=== PATIENT | male | born 1955 | race Caucasian/White ===

== ENCOUNTER 2016-11-24 17:17 | Inpatient (IN) | payer OTHER, MEDICAID ==
--- NOTE | 2016-11-24 17:24 | CPEKG ---
Heart Rate: 119 RR Interval: 504 P-R Interval: 140 QRSD Interval: 76 QT Interval: 280 QTC Interval: 394 P Daven[place]: 50 QRS [place]en[place]: 86 T Wave Davenport: 269 EKG Severity - ABNORMAL ECG - EKG Impression: SINUS TACHYCARDIA EKG Impression: BORDERLINE RIGHT AXIS DEVIATION EKG Impression: NONSPECIFIC T ABNORMALITIES, DIFFUSE LEADS Electronically Signed By: Kp Ferris 24-Nov-2016 20:06:35
[2016-11-24] MEDS ORDERED: HYDROmorphONE/DILAUDID 1 MG/ML SYR IVP ONE (17:30)
[2016-11-24 17:51] LABS: % IMMATURE GRANULYOCYTES 0.9 % (0.0-1.1); ABSOLUTE IMMATURE GRANULOCYTES 0.21 10^3/uL (0.00-0.10); ADD DIFF? NO; ADD MORPH? NO; ADD SCAN? NO; ATYPICAL LYMPHOCYTE FLAG 0 (0-99); FRAGMENT RBC FLAG 0 (0-99); HEMATOCRIT 44.9 % (40.0-51.0); HEMOGLOBIN 15.4 g/dL (13.7-17.5); LEFT SHIFT FLG 90 (0-99); LIPEMIA HEMOLYSIS FLAG 90 (0-99); MEAN CELL HEMOGLOBIN 30.4 pg (27.9-34.1); MEAN CELL HEMOGLOBIN CONCENTR. 34.3 g/dL (32.4-36.7); MEAN CELL VOLUME 88.6 fL (81.5-99.8); MEAN PLATELET VOLUME 9.6 fL (8.7-11.7); PLATELET CLUMPS FLAG 10 (0-99); PLATELET COUNT 313 10^3/uL (150-400); RED BLOOD CELL COUNT 5.07 10^6/uL (4.40-6.38); RED CELL DISTRIBUTION WIDTH 14.6 % (11.5-15.2)
[2016-11-24 17:54] LABS: ALANINE AMINOTRANSFERASE 27 IU/L (21-72); ALBUMIN 3.8 g/dL (3.5-5.0); ALKALINE PHOSPHATASE 60 IU/L (38-126); ANION GAP 9 mEq/L (8-16); ASPARTATE AMINOTRANSFERASE 25 IU/L (17-59); BILIRUBIN,TOTAL 1.1 mg/dL (0.1-1.4); BILIRUBIN-CONJUGATED 0.7 mg/dL (0.0-0.5); BILIRUBIN-UNCONJUGATED 0.4 mg/dL (0.0-1.1); CALCIUM 8.8 mg/dL (8.5-10.4); CARBON DIOXIDE 25 mEq/l (22-31); CHLORIDE 101 mEq/L (97-110); CREATININE 0.8 mg/dL (0.7-1.3); GLOMERULAR FILTRATION RATE > 60; GLUCOSE 125 mg/dL (70-100); POTASSIUM 4.5 mEq/L (3.5-5.2); SODIUM 135 mEq/L (134-144); TOTAL PROTEIN 6.5 g/dL (6.3-8.2)
--- NOTE | 2016-11-24 18:03 | EDPHY ---
HPI/HX/ROS/PE/MDM Narrative: Chief complaint: Chest pain HPI: 61-year-old male has been having intermittent left-sided low chest pain for the last 2 days. Patient states is worse when he takes a deep breath. He has not been feeling short of breath. No fevers or chills. No nausea or vomiting. States that it is intermittent been going on throughout the course of today. Began 2 nights ago pad. Did not have any significant pain yesterday. He is a pack-a-day smoker. Denies alcohol or other drug use. No abdominal pain. No nausea vomiting or diarrhea. Has a family history of coronary disease in both his mother and father. ROS: 10 point Review of Systems is negative except as noted in the HPI. Past medical history: Hypertension Peripheral neuropathy Hyperlipidemia Physical exam: Gen: Awake, Alert, No Distress, patient is tachycardic with a sinus tachycardia HEENT: Nose: no rhinorrhea Eyes: PERRLA, EOMI Mouth: Dry mucous membranes Neck: Supple, no JVD Chest: nontender, breath sounds are diminished at the bilateral bases, no wheezes, no focal rhonchi Heart: S1, S2 normal, tachycardic Abd: Soft, non-tender, no guarding Back: no CVA tenderness, no midline tenderness Ext: no edema, non-tender Skin: no rash Neuro: CN II-XII intact, Sensation grossly intact, Strength 5/5 in bilateral upper and lower extremities ED Course: 61-year-old presenting with tachycardia, chest pain which is pleuritic in nature. ECG shows T-wave inversions across the precordium and in leads II,III aVF. Symptoms are concerning for PE but cannot exclude a possible infectious or cardiac cause at this time. There is also ST depression across the precordium less than 1 mm as well suggestive of ischemia. There are no reciprocal changes. 1755 white count is noted to be elevated. He meets SIRS criteria at this time. Lactic acid chest x-ray cultures have been ordered. 1820 Pt lactate above 2, meets criteria for severe sepsis. IV fluid bolus ordered, repeat lactate ordered, ceftriaxone 2 g ordered as likely source is respiratory if he does have an infection. CT chest: Large left lower lobe infiltrate consistent with pneumonia, no PE. Study interpreted by Dr. Andujar. 1920 patient's heart rate has come down to 90 5, oxygen saturations 91%, blood pressure 1/10 to over 80. He has received 2 L bolus. Repeat lactic acid has been sent. He has received antibiotics. I have discussed with Dr. Quan, hospitalist. She would like the patient admitted to [facility] for further care. 1927 repeat lactate down to 2.1. - Data Points Laboratory Results: Laboratory Results 11/24/16 17:32 11/24/16 17:25 11/24/16 11/24/16 11/24/16 19:17 18:05 17:32 WBC 23.81 H 10^3/uL (3.80-9.50) RBC 5.07 10^6/uL (4.40-6.38) Hgb 15.4 g/dL (13.7-17.5) Hct 44.9 % (40.0-51.0) MCV 88.6 fL (81.5-99.8) MCH 30.4 pg (27.9-34.1) MCHC 34.3 g/dL (32.4-36.7) RDW 14.6 % (11.5-15.2) Plt Count 313 10^3/uL (150-400) MPV 9.6 fL (8.7-11.7) Neut % (Auto) 92.6 H % (39.3-74.2) Lymph % (Auto) 2.5 L % (15.0-45.0) Mcdonald % (Auto) 3.8 L % (4.5-13.0) Eos % (Auto) 0.0 L % (0.6-7.6) Baso % (Auto) 0.2 L % (0.3-1.7) Nucleat RBC Rel Count 0.0 % (0.0-0.2) Absolute Neuts (auto) 22.06 H 10^3/uL (1.70-6.50) Absolute Lymphs (auto) 0.59 L 10^3/uL (1.00-3.00) Absolute Monos (auto) 0.90 H 10^3/uL (0.30-0.80) Absolute Eos (auto) 0.00 L 10^3/uL (0.03-0.40) Absolute Basos (auto) 0.05 10^3/uL (0.02-0.10) Absolute Nucleated RBC 0.00 10^3/uL (0-0.01) Immature Gran % 0.9 % (0.0-1.1) Immature Gran # 0.21 H 10^3/uL (0.00-0.10) PT INR APTT VBG Lactic Acid 2.1 mmol/L 2.5 H mmol/L (0.7-2.1) (0.7-2.1) Sodium Potassium Chloride Carbon Dioxide Anion Gap BUN Creatinine Estimated GFR Glucose Calcium Total Bilirubin Conjugated Bilirubin Unconjugated Bilirubin AST ALT Alkaline Phosphatase Troponin I Total Protein Albumin Lipase Urine Color Pending Urine Appearance Pending Urine pH Pending Ur Specific Vansant Pending Urine Protein Pending Urine Ketones Pending Urine Blood Pending Urine Nitrate Pending Urine Bilirubin Pending Urine Urobilinogen Pending Ur Leukocyte Esterase Pending Urine Glucose Pending Influenza A & B (PCR) Pending 11/24/16 17:25 WBC RBC Hgb Hct MCV MCH MCHC RDW Plt Count MPV Neut % (Auto) Lymph % (Auto) Mcdonald % (Auto) Eos % (Auto) Baso % (Auto) Nucleat RBC Rel Count Absolute Neuts (auto) Absolute Lymphs (auto) Absolute Monos (auto) Absolute Eos (auto) Absolute Basos (auto) Absolute Nucleated RBC Immature Gran % Immature Gran # PT 14.5 SEC (12.0-15.0) INR 1.14 (0.83-1.16) APTT 32.6 SEC (23.0-38.0) VBG Lactic Acid Sodium 135 mEq/L (134-144) Potassium 4.5 mEq/L (3.5-5.2) Chloride 101 mEq/L (97-110) Carbon Dioxide 25 mEq/l (22-31) Anion Gap 9 mEq/L (8-16) BUN 11 mg/dL (7-23) Creatinine 0.8 mg/dL (0.7-1.3) Estimated GFR > 60 Glucose 125 H mg/dL (70-100) Calcium 8.8 mg/dL (8.5-10.4) Total Bilirubin 1.1 mg/dL (0.1-1.4) Conjugated Bilirubin 0.7 H mg/dL (0.0-0.5) Unconjugated Bilirubin 0.4 mg/dL (0.0-1.1) AST 25 IU/L (17-59) ALT 27 IU/L (21-72) Alkaline Phosphatase 60 IU/L (38-126) Troponin I < 0.012 ng/mL (0-0.034) Total Protein 6.5 g/dL (6.3-8.2) Albumin 3.8 g/dL (3.5-5.0) Lipase < 10.0 L IU/L (23-300) Urine Color Urine Appearance Urine pH Ur Specific Vansant Urine Protein Urine Ketones Urine Blood Urine Nitrate Urine Bilirubin Urine Urobilinogen Ur Leukocyte Esterase Urine Glucose Influenza A & B (PCR) Medications Given: Discontinued Medications Hydromorphone HCl (Dilaudid) 0.5 mg IVP EDNOW ONE Stop: 11/24/16 17:31 Last Admin: 11/24/16 17:38 Dose: 0.5 mg Ceftriaxone Sodium 2 gm/ (Dextrose) 50 mls @ 100 mls/hr IV EDNOW ONE PRN Reason: Protocol Stop: 11/24/16 18:47 Last Admin: 11/24/16 18:46 Dose: 50 mls Sodium Chloride (Ns *For Sepsis Order Set Only*) 2,041 ml IV EDNOW ONE Stop: 11/24/16 18:19 Last Admin: 11/24/16 18:23 Dose: 2,041 ml General Time Seen by Provider: 11/24/16 17:17 Initial Vital Signs: Initial Vital Signs Temperature (C) 37.3 C 11/24/16 17:26 Heart Rate 120 H 11/24/16 17:26 Respiratory Rate 20 11/24/16 17:26 Blood Pressure 105/66 11/24/16 17:26 O2 Sat (%) 90 L 11/24/16 17:26 O2 Delivery Mode Nasal Cannula O2 (L/minute) 2 Allergies/Adverse Reactions: No Known Allergies Allergy (Verified 03/17/14 20:46) Home Medications: Medication Instructions Recorded Atorvastatin Calcium [Lipitor 40 40 mg PO HS 03/18/14 mg (RX)] Cyclobenzaprine [Flexeril 10 MG 10 mg PO BID 03/18/14 (RX)] Lisinopril [Zestril 10 mg (*)] 10 mg PO HS 03/18/14 Sertraline HCl [Zoloft] 75 mg PO DAILY 03/18/14 oxyCODONE/APAP 5/325 [Percocet 1 tab PO Q4 PRN 03/18/14325 (RX)] GABAPENTIN 11/24/16 Oxycontin 11/24/16 Departure - Departure Disposition: [facility] Inpatient Acute Clinical Impression: Pneumonia Condition: Fair Referrals: Yonny Robins MD [Primary Care Provider] - As per Instructions
[2016-11-24 18:06] LABS: TROPONIN I < 0.012 ng/mL (0-0.034)
[2016-11-24 18:10] LABS: APTT 32.6 SEC (23.0-38.0); INR 1.14 (0.83-1.16); PROTIME(PATIENT) 14.5 SEC (12.0-15.0)
[2016-11-24] MEDS ORDERED: NS 1,000 ML BAG *FOR SEPSIS ORDER SET ONLY IV ONE (18:18)
[2016-11-24] MEDS ORDERED: cefTRIAXone 2 GM in D5W 50 ML IV ONE (18:18)
[2016-11-24] MEDS ORDERED: CEFTRIAXONE 1 GM/DEXTROSE/50 ML BAG IV ONE (18:20)
[2016-11-24] MEDS ORDERED: IOPAMIDOL (ISOVUE 370) 100 ML BTL IV ONE (18:43)
--- NOTE | 2016-11-24 18:57 | DX ---
Chest, Two Views at 1755 hours History: Meets sepsis criteria, suspected infection . Chest pain. Comparison: December 2007 Findings: Cardiac silhouette is within normal range. Alveolar opacity in the left lower lobe posterio r basal segment. No pleural effusion or pneumothorax. Impression: Left lower lobe pneumonia.
[2016-11-24 19:09] LABS: LACGHOST ORDER
[2016-11-24 19:29] LABS: COLOR PALE YELLOW; LEUKOCYTE ESTERASE,URINE NEGATIVE (NEGATIVE); NITRITE,URINE NEGATIVE (NEGATIVE)
[2016-11-24] MEDS ORDERED: fentaNYL 100 MCG/2 ML INJ ONE (19:32)
[2016-11-24] MEDS ORDERED: fentaNYL 100 MCG/2 ML INJ IVP ONE (19:37)
--- NOTE | 2016-11-24 19:38 | CT ---
CT Chest Pulmonary Angiogram With Contrast Enhancement and Multiplanar Reconstructions 2016 at 1900 Hours History: Dyspnea, leukocytosis. Comparison: Chest x-ray from today. Technique: 1.25-mm axial multidetector helical CT angiogram imaging was performed through the chest w hile 90 mL Isovue-370 were injected intravenously without complication. The images were then transfe rred to an independent workstation where multiplanar and three-dimensional reconstructions were perfo rmed by the interpreting physician and reviewed at multiple windows. Dose reduction techniques were u tilized. CT Pulmonary Angiogram Findings: No CT evidence of definite pulmonary thromboemboli. No aortic aneur ysm or dissection. Heart is normal in size. CT Chest Findings: Alveolar opacity opacifying the majority of the left lower lobe, likely representi ng pneumonia. Pleuroparenchymal scarring in the lingula. A few probably inflammatory mediastinal lymp h nodes with the largest right paratracheal lymph node measuring 20 x 13 mm. Small hiatal hernia with thickening of the distal esophagogastric junction. Consider follow-up endoscopy. Coronary artery bela cifications noted. Minimal dependent atelectasis right lower lobe. No pleural effusion. No destructiv e osseous lesions. Impressions: 1. No definite pulmonary thromboemboli. 2. Left lower lobe pneumonia. Recommend follow-up until clear. 3. A few probably benign inflammatory mediastinal lymph nodes. 4. No pleural effusion or pneumothorax. 5. Small hiatal hernia with distal esophagogastric circumferential wall thickening which may represen t esophagitis. Recommend upper endoscopy GI consult follow-up. Findings and recommendations discussed with emergency department physician, Dr. Kp Elizondo at 1915 hours today. Final report concurs with initial preliminary interpretation. A Critical Abnormality Doc Only message has been documented for Kp Ferris MD in the [employer] Critical Result system on 11/24/2016 19:18, Message ID [id number].
[2016-11-24] MEDS ORDERED: HYDROmorphONE/DILAUDID 1 MG/ML SYR IVP PRN (19:50)
[2016-11-24] MEDS ORDERED: CYCLOBENZAPRINE 10 MG TAB PO PRN (19:51)
[2016-11-24] MEDS ORDERED: oxyCODONE IR 15 MG TAB PO PRN (19:51)
[2016-11-24] MEDS ORDERED: KETOROLAC 30 MG/1 ML SDV IVP PRN (19:51)
[2016-11-24] MEDS ORDERED: ACETAMINOPHEN 325 MG TAB PO PRN (19:52)
[2016-11-24] MEDS ORDERED: ONDANSETRON 4 MG/2 ML VIAL IVP PRN (19:52)
[2016-11-24] MEDS ORDERED: IPRATROPIUM/ALBUTEROL 3 ML DEYVIAL IH PRN (20:08)
[2016-11-24] MEDS: GABAPENTIN 300 MG CAP PO SCH (20:24)
[2016-11-24] MEDS: ATORVASTATIN CALCIUM 20 MG TAB PO SCH (20:24)
[2016-11-24] MEDS: PANTOPRAZOLE SODIUM 40 MG TAB PO SCH (20:25)
[2016-11-24] MEDS: NS 1,000 ML IV SCH (20:26)
--- NOTE | 2016-11-24 20:43 | GHP ---
[f rep st] HISTORY AND PHYSICAL DATE OF ADMISSION: 11/24/2016 CHIEF COMPLAINT: Pleuritic chest pain. HISTORY: The patient is a 61-year-old male who comes in complaining of severe left-sided pleuritic c hest pain. It started yesterday, but he woke up this morning and it was very severe, sharp like a kn isidro, radiating to his back. He denies any shortness of breath. He has been having tactile fevers as well as a new cough, nonproductive, for the last 3 days. He occasionally will have GERD symptoms bu t has not had any unintentional weight loss and has had normal p.o. intake. He also feels like his k idneys are hurting. PAST MEDICAL HISTORY: 1. Hypertension. 2. Hyperlipidemia. 3. Peripheral neuropathy. 4. Chronic back pain with continuous narcotic dependency. MEDICATIONS: Please see computer record for full detailed list. ALLERGIES: No known drug allergies. SOCIAL HISTORY: Smokes 1 pack per day. Occasional alcohol. Lives alone. REVIEW OF SYSTEMS: Complete review of systems obtained. Review of systems is negative on constituti onal, HEENT, GI, pulmonary, cardiovascular, , hematology, skin, musculoskeletal, endocrine, and psy ch except for positives and pertinent negatives which were listed as under HPI. FAMILY HISTORY: Reviewed and noncontributory to presenting complaint. PHYSICAL EXAMINATION: GENERAL: Well-nourished male, in no distress. VITAL SIGNS: Temperature is 3 7.3, pulse 120, blood pressure 129/77, sating 90% on 2 L. EYES: Normal conjunctiva. Pupils equal, round, and react to light. ENT: Normal ears, nose. Hearing intact. Normal lips and teeth. Oropha rynx moist. NECK: Trachea midline. No thyromegaly. CHEST: Normal effort. LUNGS: Clear to auscu ltation bilaterally. CARDIOVASCULAR: Regular rhythm. No murmur. No lower extremity edema. ABDOME N: Soft, nontender. No hepatosplenomegaly. SKIN: Warm, dry, intact without rash. MUSCULOSKELETAL : No cyanosis or clubbing. Strength 5/5 upper and lower extremities. NEUROLOGIC: Cranial nerves i ntact. Normal sensation light touch. PSYCHIATRIC: Alert and oriented x3. Normal affect. Normal j udgment and insight. Normal memory. LABS: White count 23.8, hematocrit 44.9, platelets 313. Sodium 135, potassium 4.5, chloride 101, bi carb 25, BUN 11, creatinine 0.8, glucose 125. LFTs are normal. Lipase negative. Troponin negative CT angiogram of the chest is negative for pulmonary embolus. There is left lower lobe pneumonia. Th ere is a question of esophagitis EKG viewed by me on my personal interpretation is normal sinus rhyth m, anterior T-wave inversions. Chest x-ray reviewed by me does show a very slight left lower lobe in filtrate. ASSESSMENT/PLAN: 1. Pneumonia with severe sepsis. He does present with elevated lactate as well as leukocytosis and tachycardia. He received a large IV fluid bolus in the emergency room. We will now follow serial la ctates. We will place him on IV ceftriaxone and IV azithromycin for community-acquired pneumonia. 2. Tobacco dependence. Will place him on a nicotine patch and use DuoNeb as needed. 3. Esophagitis by CAT scan. He has minimal symptoms. We will start empirically on a proton pump in hibitor. He should undergo EGD when his clinical status is improved. 4. Chronic back pain with continuous narcotic dependency. Will continue his usual OxyContin doses. 5. Neuropathy. Continue gabapentin. CODE STATUS: Full. ADMISSION STATUS: Will admit to inpatient as he is quite sick. Anticipate 2 midnights required for discharge stability. DVT PROPHYLAXIS: He is high risk. I will place him on subcu Lovenox. /[id number]/MODL
[2016-11-24] MEDS: AZITHROMYCIN IV 500 MG in D5W 250 ML IV SCH (20:47)
[2016-11-24] MEDS ORDERED: NON-FORMULARY NEW DRUG (Oxycodone Hcl [Oxycontin] 60 MG) PO SCH (21:00)
[2016-11-25 04:57] LABS: % IMMATURE GRANULYOCYTES 0.7 % (0.0-1.1); ABSOLUTE IMMATURE GRANULOCYTES 0.15 10^3/uL (0.00-0.10); ADD DIFF? NO; ADD MORPH? NO; ADD SCAN? YES; ATYPICAL LYMPHOCYTE FLAG 0 (0-99); FRAGMENT RBC FLAG 0 (0-99); HEMATOCRIT 40.8 % (40.0-51.0); LIPEMIA HEMOLYSIS FLAG 90 (0-99); MEAN CELL HEMOGLOBIN 30.7 pg (27.9-34.1); MEAN CELL HEMOGLOBIN CONCENTR. 34.3 g/dL (32.4-36.7); MEAN CELL VOLUME 89.5 fL (81.5-99.8); MEAN PLATELET VOLUME 9.6 fL (8.7-11.7); PLATELET CLUMPS FLAG 0 (0-99); PLATELET COUNT 244 10^3/uL (150-400); RED BLOOD CELL COUNT 4.56 10^6/uL (4.40-6.38); RED CELL DISTRIBUTION WIDTH 14.8 % (11.5-15.2)
[2016-11-25 05:07] LABS: LEFT SHIFT FLG 210 (0-99)
[2016-11-25 05:13] LABS: ANION GAP 8 mEq/L (8-16); CALCIUM 7.9 mg/dL (8.5-10.4); CARBON DIOXIDE 24 mEq/l (22-31); CHLORIDE 105 mEq/L (97-110); CREATININE 0.6 mg/dL (0.7-1.3); GLOMERULAR FILTRATION RATE > 60; GLUCOSE 101 mg/dL (70-100); POTASSIUM 3.8 mEq/L (3.5-5.2); SODIUM 137 mEq/L (134-144)
[2016-11-25] MEDS: GABAPENTIN 300 MG CAP PO SCH ×3 (05:19→20:46)
[2016-11-25 05:23] LABS: TROPONIN I < 0.012 ng/mL (0-0.034)
[2016-11-25 05:37] LABS: SCAN POSITIVE
[2016-11-25 05:42] LABS: PLATELET ESTIMATE ADEQUATE (ADEQ)
--- NOTE | 2016-11-25 08:22 | HOSPPROG ---
Hospitalist Progress Note Assessment/Plan: Severe sepsis secondary to LLL PNA - Sepsis physiology resolving, lactate normalized, wbc's trending down. BCx's and Sputum Cx pending. -Cont Ceftriaxone/Azithromycin, O2, nebs Esophageal thickening - ?esophagitis vs malignancy. Appreciate GI consult. Will consider inpt vs outpt EGD once respiratory status stabilized. Hypertension - Stable, cont current meds. Hyperlipidemia - Cont statin Neuropathy - Cont gabapentin Chronic back pain - Cont home pain medication regimen DVT PPLX - Lovenox Full code Dispo - cont inpt Subjective: Pt still coughing. Afebrile. Chest pain improved. Not SOB at rest , but reports dyspnea with exertion. Tolerating po. c/o multiple orthopedic issues causing his chronic pain. Objective: Vital Signs Temp Pulse Resp BP Pulse Ox 36.8 C 87 16 105/63 93 11/25/16 07:39 11/25/16 07:39 11/25/16 07:39 11/25/16 07:39 11/25/16 07:39 Laboratory Results 11/25/16 04:23 11/25/16 04:23 11/24/16 11/25/16 11/26/16 05:59 05:59 05:59 Intake Total 3123 Output Total 550 Balance 2573 PT 14.5 SEC (12.0-15.0) 11/24/16 17:25 INR 1.14 (0.83-1.16) 11/24/16 17:25 - Physical Exam Constitutional: no apparent distress Eyes: PERRL Ears, Nose, Mouth, Throat: moist mucous membranes Cardiovascular: regular rate and rhythym Respiratory: no respiratory distress, other (+left basilar crackles) Gastrointestinal: normoactive bowel sounds, soft, non-tender abdomen Skin: warm Neurologic: AAOx3 Psychiatric: interacting appropriately ICD10 Worksheet Patient Problems: Problems Problem Status Diagnosed Pneumonia Acute Clostridium difficile infection Active
[2016-11-25] MEDS: LISINOPRIL 5 MG TAB PO SCH (09:53)
[2016-11-25] MEDS: PANTOPRAZOLE SODIUM 40 MG TAB PO SCH ×2 (09:53→20:47)
[2016-11-25] MEDS: SERTRALINE HCL 50 MG TAB PO SCH (09:53)
[2016-11-25] MEDS: NICOTINE 21 MG/24 HR PATCH TD SCH ×2 (09:55→10:52)
[2016-11-25] MEDS: ENOXAPARIN 40 MG/0.4 ML SYR SC SCH (09:56)
[2016-11-25] MEDS: AZITHROMYCIN IV 500 MG in D5W 250 ML IV SCH (10:25)
[2016-11-25] MEDS ORDERED: oxyCODONE IR 15 MG TAB ONE (11:52)
[2016-11-25] MEDS: NS 1,000 ML IV SCH (11:59)
[2016-11-25] MEDS: oxyCODONE IR 15 MG TAB PO PRN ×2 (12:00→18:13)
--- NOTE | 2016-11-25 13:59 | GCON ---
[f rep st] CONSULTATION DATE OF CONSULTATION: 11/25/2016 CHIEF COMPLAINT: Abnormal CT scan and chest pain. HISTORY OF PRESENT ILLNESS: I am asked to see this patient in consultation by Dr. Gonsalez for chief complaint of abnormal CT scan with chest pain. Patient is a 61-year-old who was admitted yesterday f or evaluation of severe left-sided pleuritic chest pain. He had a CT scan that showed a left lower l obe pneumonia, however, he also had thickening and abnormality of his distal esophagus. The patient states that he has occasional GERD that is infrequent. No nausea and vomiting recently, but states t hat he may vomit occasionally, but less than once a month. He denies any dysphagia, including no dys phagia to solids or liquids. He has not had any weight loss. He states he does have irregular stool s because of his medications; sometimes he will get diarrhea from the Zoloft, but he also takes chron ic pain medications that tend to make him constipated. He has had no blood in his stools. No melena . He has had a colonoscopy by my partner in 2006 and that was negative. There is no known family hi story for esophageal cancer. ALLERGIES: No drug allergies. HOME MEDICATIONS: Include oxycodone, Neurontin, lisinopril, Zoloft, Flexeril, Lipitor, roxicodone. PAST MEDICAL HISTORY: Notable for hypertension, hyperlipidemia, peripheral neuropathy, chronic back pain, opioid dependence. SOCIAL HISTORY: He smokes a pack a day. Drinks occasional alcohol. FAMILY HISTORY: Negative for esophageal cancer or colon cancer. REVIEW OF SYSTEMS: Review of 10 systems, including general, psych, HEENT, cardiovascular, pulmonary, renal, hematologic, musculoskeletal, derm, neurologic discussed and otherwise negative except noted above. PHYSICAL EXAMINATION: VITAL SIGNS: Currently afebrile at 36.6, BP 108/60, pulse 86. HEENT: PERRLA . EOMI: No scleral icterus. Oropharynx is normal. NECK: Supple without lymphadenopathy. No thyr omegaly. CARDIAC: Regular rate and rhythm, S1, S2 normal. No murmur detected. PMI in normal locat ion. CHEST: Clear to auscultation, although he does have some decreased breath sounds in the left l ower lobe. ABDOMEN: Soft, nontender. No hepatosplenomegaly. EXTREMITIES: Normal. NEUROLOGICAL: Nonfocal. LABORATORY DATA: Hematocrit of 40.8, white count is elevated at 21. Coags are normal. Liver tests are normal with alkaline phosphatase of 60, AST 25, ALT 27, total bilirubin is 1.1, lipase less than 10. CT scan of the chest shows no thromboemboli to the pulmonary artery, left lower lobe pneumonia, a few benign-appearing mediastinal lymph nodes. No pleural effusions. Small hiatal hernia in the di stal esophagus with circumferential wall thickening that may represent esophagitis. ASSESSMENT: 1. Patient with chest pain. 2. Left lower lobe pneumonia. 3. Abnormal CT scan of the esophagus concerning for possible esophagitis, but also consider malignan t process. The patient is relatively asymptomatic, however, I would recommend upper endoscopy. At t his point, we will need to postpone any EGD due to his ongoing pulmonary status, but once his pneumon ia is improved, we could proceed with an EGD. Patient has mentioned he would like to do this as an o utpatient. I would suggest consideration of an upper endoscopy with monitored anesthesia care charlotte rainey of his chronic narcotic pain medication. We will follow. Thank you for this consult. /[id number]/MODL
[2016-11-25] MEDS: ATORVASTATIN CALCIUM 20 MG TAB PO SCH (20:46)
[2016-11-26] MEDS: GABAPENTIN 300 MG CAP PO SCH ×3 (04:08→20:37)
[2016-11-26] MEDS: oxyCODONE IR 15 MG TAB PO PRN ×3 (04:08→16:47)
[2016-11-26 05:48] LABS: % IMMATURE GRANULYOCYTES 0.5 % (0.0-1.1); ABSOLUTE IMMATURE GRANULOCYTES 0.08 10^3/uL (0.00-0.10); ADD DIFF? NO; ADD MORPH? NO; ADD SCAN? NO; ATYPICAL LYMPHOCYTE FLAG 0 (0-99); FRAGMENT RBC FLAG 0 (0-99); HEMATOCRIT 39.7 % (40.0-51.0); HEMOGLOBIN 13.5 g/dL (13.7-17.5); LEFT SHIFT FLG 20 (0-99); LIPEMIA HEMOLYSIS FLAG 90 (0-99); MEAN CELL HEMOGLOBIN 30.7 pg (27.9-34.1); MEAN CELL VOLUME 90.2 fL (81.5-99.8); MEAN PLATELET VOLUME 9.8 fL (8.7-11.7); PLATELET CLUMPS FLAG 0 (0-99); PLATELET COUNT 264 10^3/uL (150-400); RED CELL DISTRIBUTION WIDTH 14.4 % (11.5-15.2)
[2016-11-26] MEDS: AZITHROMYCIN IV 500 MG in D5W 250 ML IV SCH (09:31)
[2016-11-26] MEDS: SERTRALINE HCL 50 MG TAB PO SCH (10:40)
[2016-11-26] MEDS: LISINOPRIL 5 MG TAB PO SCH (10:40)
[2016-11-26] MEDS: ENOXAPARIN 40 MG/0.4 ML SYR SC SCH (10:42)
[2016-11-26] MEDS: NICOTINE 21 MG/24 HR PATCH TD SCH (10:42)
[2016-11-26] MEDS: PANTOPRAZOLE SODIUM 40 MG TAB PO SCH ×2 (10:42→20:38)
--- NOTE | 2016-11-26 11:09 | SOAPPROG ---
SOAP Progress Note Assessment/Plan: Assessment: Cough Abnormal CT scan of esophagus likely from GERD will need EGD but patient would like to do as outpatient after his pneumonia has resolved Plan: Will arrange for outpatient EGD PPI daily Will sign off 11/26/16 11:06 Subjective: CC cough Respiratory symptoms are better, no GERD Objective: Vital Signs Temp Pulse Resp BP Pulse Ox 36.6 C 71 16 120/84 H 94 11/26/16 07:22 11/26/16 07:22 11/26/16 07:22 11/26/16 10:40 11/26/16 07:22 Microbiology 11/25/16 16:19 - Final Sputum, Expectorated Laboratory Results 11/26/16 04:21 11/25/16 04:23 11/25/16 11/26/16 11/27/16 05:59 05:59 05:59 Intake Total 3123 Output Total 550 Balance 2573 PT 14.5 SEC (12.0-15.0) 11/24/16 17:25 INR 1.14 (0.83-1.16) 11/24/16 17:25 Physical Exam - Physical Exam General Appearance: alert, no apparent distress Respiratory: decreased breath sounds, No wheezing Cardiac/Chest: regular rate, rhythm, No diastolic murmur Abdomen: non-tender, soft ICD10 Worksheet Patient Problems: Problems Problem Status Diagnosed Pneumonia Acute Clostridium difficile infection Active
--- NOTE | 2016-11-26 16:07 | HOSPPROG ---
Hospitalist Progress Note Assessment/Plan: Severe sepsis secondary to LLL PNA - Sepsis physiology resolving, lactate normalized, wbc's trending down. BCx's and Sputum Cx pending. -Cont Ceftriaxone/Azithromycin, O2, nebs Esophageal thickening - ?esophagitis vs malignancy. Appreciate GI consult. Will consider inpt vs outpt EGD once respiratory status stabilized. Increased anesthesia risk with high dose chronic opiates. Hypertension - Stable, cont current meds. Hyperlipidemia - Cont statin Neuropathy - Cont gabapentin Chronic back pain - Cont home pain medication regimen, high risk opiate regimen. DVT PPLX - Lovenox Full code Dispo - cont inpt Subjective: Pt feels better. Still productive cough, but no fevers. No CP or SOB. Still requiring O2. Pain controlled. Objective: Vital Signs Temp Pulse Resp BP Pulse Ox 36.6 C 77 16 154/91 H 90 L 11/26/16 15:23 11/26/16 15:23 11/26/16 15:23 11/26/16 15:23 11/26/16 15:23 Microbiology 11/25/16 16:19 - Final Sputum, Expectorated Laboratory Results 11/26/16 04:21 11/25/16 04:23 11/25/16 11/26/16 11/27/16 05:59 05:59 05:59 Intake Total 3123 Output Total 550 Balance 2573 PT 14.5 SEC (12.0-15.0) 11/24/16 17:25 INR 1.14 (0.83-1.16) 11/24/16 17:25 - Physical Exam Constitutional: no apparent distress Eyes: PERRL Ears, Nose, Mouth, Throat: moist mucous membranes Cardiovascular: regular rate and rhythym Respiratory: no respiratory distress, other (Left lower lobe crackles) Gastrointestinal: normoactive bowel sounds, soft, non-tender abdomen Skin: warm Neurologic: AAOx3 Psychiatric: interacting appropriately ICD10 Worksheet Patient Problems: Problems Problem Status Diagnosed Pneumonia Acute Clostridium difficile infection Active
[2016-11-26] MEDS: ATORVASTATIN CALCIUM 20 MG TAB PO SCH (20:37)
[2016-11-27] MEDS: oxyCODONE IR 15 MG TAB PO PRN ×2 (03:19→09:37)
[2016-11-27 04:53] LABS: % IMMATURE GRANULYOCYTES 0.5 % (0.0-1.1); ABSOLUTE IMMATURE GRANULOCYTES 0.04 10^3/uL (0.00-0.10); ADD DIFF? NO; ADD MORPH? NO; ADD SCAN? NO; ATYPICAL LYMPHOCYTE FLAG 30 (0-99); FRAGMENT RBC FLAG 0 (0-99); HEMATOCRIT 40.2 % (40.0-51.0); HEMOGLOBIN 13.4 g/dL (13.7-17.5); LEFT SHIFT FLG 10 (0-99); LIPEMIA HEMOLYSIS FLAG 80 (0-99); MEAN CELL HEMOGLOBIN 30.2 pg (27.9-34.1); MEAN CELL HEMOGLOBIN CONCENTR. 33.3 g/dL (32.4-36.7); MEAN CELL VOLUME 90.5 fL (81.5-99.8); MEAN PLATELET VOLUME 9.4 fL (8.7-11.7); PLATELET CLUMPS FLAG 0 (0-99); PLATELET COUNT 283 10^3/uL (150-400); RED BLOOD CELL COUNT 4.44 10^6/uL (4.40-6.38)
[2016-11-27] MEDS: GABAPENTIN 300 MG CAP PO SCH (05:16)
[2016-11-27 08:26] VITALS: BP 121/69; PULSE 80; RESP 14; TEMP 97.9; O2SAT 92
[2016-11-27] MEDS: SERTRALINE HCL 50 MG TAB PO SCH (08:28)
[2016-11-27] MEDS: LISINOPRIL 5 MG TAB PO SCH (08:29)
[2016-11-27] MEDS: ENOXAPARIN 40 MG/0.4 ML SYR SC SCH (08:29)
[2016-11-27] MEDS: PANTOPRAZOLE SODIUM 40 MG TAB PO SCH (08:29)
[2016-11-27] MEDS: NICOTINE 21 MG/24 HR PATCH TD SCH (08:29)
[2016-11-27] MEDS: AZITHROMYCIN IV 500 MG in D5W 250 ML IV SCH (09:36)
--- NOTE | 2016-11-27 09:36 | PDDCSUM ---
Discharge Summary Discharge Summary: HPI and Hospital Course: 61 YO MALE ADMITTED FOR SEPSIS AND PNEUMONIA. NOW BETTER. ALSO DIAGNOSED WITH LIKELY ESOPHAGITIS. SEE BELOW DDX: Severe sepsis secondary to LLL PNA -BCx's and Sputum Cx negative thus far -treated with Ceftriaxone/Azithromycin, O2, nebs now transitioned to Omnicef and Azithromycing -On RA, afebrile, feels good, feels strong Esophageal thickening - ?esophagitis vs malignancy. GI consult obtained. He is to f/u for outpatient EGD. Has been started on Omeprazole BID Hypertension - Stable, cont current meds. Hyperlipidemia - Cont statin Neuropathy - Cont gabapentin Chronic back pain - Cont home pain medication regimen, high risk opiate regimen. DVT PPLX - Lovenox while inpatient Full code DC MEDS: SEE MED REC. New meds: 1) Omnicef 300 bid x 7 days 2)Azithromycin 500mg daily x 3 days 3)Omeprazole 40mg BID F/U: 1)PCP- the patient is making this appointment. will need f/u early next week 2)GI: for outpatient f/u. Referral provided DC EXAM: VSS, ON RA, BP OK, AFEBRILE NAD AAOX3 RRR SLIGHTLY DIMINISHED, NORMAL WORK OF BREATHING S/NT/ND NO EDEMA TOTAL CARE TIME SPENT ON DISCHARGE IS 40 MINUTES
[2016-11-27] MEDS ORDERED: CEFDINIR 300 MG CAP PO SCH (21:00)
[2016-11-28] MEDS ORDERED: AZITHROMYCIN 250 MG TAB PO SCH (09:00)
== END 2016-11-27 11:59 | disposition home or self-care (01) | DRG 871 ==
LOC: EDUNIT# → F3E 19:58
PROVIDERS: ADMIT Internal Medicine; ATTEND Internal Medicine
DX: A41.9 Sepsis, unspecified organism (principal); J18.8 Other pneumonia, unspecified organism; F11.20 Opioid dependence, uncomplicated; K20.9 Esophagitis, unspecified; R65.20 Severe sepsis without septic shock; I10 Essential (primary) hypertension; E78.5 Hyperlipidemia, unspecified; G62.9 Polyneuropathy, unspecified; G89.29 Other chronic pain; F17.210 Nicotine dependence, cigarettes, uncomplicated
CPT/HCPCS: 96365; 97161-GP; 97165-GO; G8978-GP-CI; G8979-GP-CI; G8987-GO-CI; G8988-GO-CH; G8989-GO-CH; J0456; J0696; J1170; J1650; J3010; Q9967

== ENCOUNTER 2017-01-21 06:28 | Day surgery (SDC) | payer OTHER, MEDICAID ==
[2017-01-21] MEDS ORDERED: LIDOCAINE 1% 5 ML SDV ID PRN (07:02)
[2017-01-21] MEDS ORDERED: LR 1,000 ML IV ONE (07:02)
[2017-01-21] MEDS ORDERED: PROPOFOL 200 MG/20 ML VIAL ONE ×3 (07:28)
[2017-01-21] MEDS ORDERED: fentaNYL 100 MCG/2 ML INJ ONE (07:31)
--- NOTE | 2017-01-21 08:33 | GPN ---
[f rep st] PROCEDURE NOTE PREPROCEDURE DIAGNOSIS: Abnormal imaging of the gastroesophageal junction, heartburn, and need for screening colonoscopy. POSTPROCEDURE DIAGNOSES: 1. 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 2. Poor colon prep. 3. Healing IC valve ulcer. MEDICATIONS: Monitored anesthesia care. INDICATIONS: The patient is a 61-year-old male who was in the hospital in November for pneumonia and had a CT angio study which showed circumferential thickening of the GE junction. He was subsequent ly started on Protonix and recommended that he undergo upper endoscopy for further evaluation. He a lso is due for a screening colonoscopy. His last colonoscopy was 10 years ago. The risks and benef its of the procedure were discussed with the patient and consent obtained. Risks include, but not l imited to, bleeding, perforation, sedation. The patient is ASA class 3. DESCRIPTION OF PROCEDURE: The upper endoscope inserted into the esophagus, into the stomach and sec ond portion of the duodenum. The esophagus was normal. The GE junction showed some irregularity an d possible small tongue of Regalado's. This was located at 41 cm from the incisors. Biopsies were ta gama using cold biopsy forceps to evaluate for Regalado's. The stomach showed mild erythema in the an trum. Biopsies were taken to evaluate for Helicobacter pylori. Biopsies were taken using cold biop sy forceps. The duodenum and second portion were normal. The patient was then repositioned and the adult colonoscope was advanced into the terminal ileum which appeared normal. There was stool loca talha throughout the entire colon precluding visualization. Approximately 40% of the colon wall could not be visualized. At the ileocecal valve there appeared to be a healing clean based ulcer. This is possibly an NSAID related ulcer. Biopsies were taken using cold biopsy forceps. No additional a bnormal findings were found. No polyps were found. Retroflexed views in the rectum were normal. A gain the procedure was incomplete secondary to poor preparation. IMPRESSION: 1. 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 2. Poor colon preparation precluding visualization. RECOMMENDATIONS: 1. Discharge home with escort. 2. Advance diet as tolerated. 3. Continue current medications. 4. Repeat screening colonoscopy at the next available procedure with 2 day GoLYTELY prep since this was inadequate for screening purposes. 5. Thank you for allowing me to participate in the care of your patient. Please do not hesitate to call with questions. /[id number]/MODL
== END 2017-01-21 09:25 | disposition home or self-care (01) ==
LOC: FSGY 06:28
PROVIDERS: ATTEND Internal Medicine Gastroenterology
PROC: 0DB58ZX Excision of Esophagus, Via Natural or Artificial Opening Endoscopic, Diagnostic (ICD-10-PCS; principal; 2017-01-21 07:45)
PROC: 0DBC8ZX Excision of Ileocecal Valve, Via Natural or Artificial Opening Endoscopic, Diagnostic (ICD-10-PCS; principal; 2017-01-21 07:45)
PROC: 0DJD8ZZ Inspection of Lower Intestinal Tract, Via Natural or Artificial Opening Endoscopic (ICD-10-PCS; principal; 2017-01-21 07:45)
PROC: 0DB68ZX Excision of Stomach, Via Natural or Artificial Opening Endoscopic, Diagnostic (ICD-10-PCS; principal; 2017-01-21 07:45)
PROC: 0DJ08ZZ Inspection of Upper Intestinal Tract, Via Natural or Artificial Opening Endoscopic (ICD-10-PCS; principal; 2017-01-21 07:45)
DX: K21.9 Gastro-esophageal reflux disease without esophagitis (principal); Z12.11 Encounter for screening for malignant neoplasm of colon; K63.3 Ulcer of intestine; F17.210 Nicotine dependence, cigarettes, uncomplicated
CPT/HCPCS: J2704; J3010

== ENCOUNTER 2017-04-29 08:22 | Day surgery (SDC) | payer OTHER, MEDICAID ==
[2017-04-29] MEDS ORDERED: LR 1,000 ML IV ONE (08:55)
[2017-04-29] MEDS ORDERED: LIDOCAINE 1% 2 ML INJ ID PRN (08:55)
--- NOTE | 2017-04-29 08:56 | PDGENHP ---
History & Physical Chief Complaint: needs screening colonoscopy History of Present Illness: prior poor prep colonoscopy Relevant Physical Exam: GEN: NAD. Cardiac: RRR. Lungs: CTA B. Abd: Soft, nt, nd
[2017-04-29 09:15] VITALS: PULSE 73
--- NOTE | 2017-04-29 09:20 | PDANEPAE ---
ANE History of Present Illness hiatal hernia ANE Past Medical History - Cardiovascular History Hx Hypertension: Yes Hx Arrhythmias: No Hx Chest Pain: No Hx Coronary Artery / Peripheral Vascular Disease: No Hx CHF / Valvular Disease: No Hx Palpitations: No - Pulmonary History Hx COPD: No Hx Asthma/Reactive Airway Disease: No Hx Recent Upper Respiratory Infection: No Hx Oxygen in Use at Home: No - Neurologic History Hx Cerebrovascular Accident: No Hx Seizures: No Hx Dementia: No - Endocrine History Hx Diabetes: No - Renal History Hx Renal Disorders: No - Liver History Hx Hepatic Disorders: No - Neurological & Psychiatric Hx Hx Neurological and Psychiatric Disorders: Yes - Cancer History Hx Cancer: No - Congenital Disorder History Hx Congenital Disorders: No - GI History Hx Gastrointestinal Disorders: Yes - Chronic Pain History Chronic Pain: Yes (CERVICAL NECK) ANE Review of Systems - Exercise capacity Exercise capacity: >=4 METS METS (RN): 3 METS - Systems Cardiac: Reports: other (hypertension, usual BP 120/80) Neurological: Reports: depressed, numbness (cervical radiculopathy), tingling, other (peripheral neuropathy) ANE Patient History - Allergies Allergies/Adverse Reactions: No Known Allergies Allergy (Verified 03/17/14 20:46) - Home Medications Home medications: home medication list seen and reviewed Home Medications: Sertraline HCl [Zoloft 50mg (*)] 75 mg PO DAILY06 03/18/14 [Last Taken 01/20/17] Atorvastatin Calcium [Lipitor 20 mg (*)] 20 mg PO HS 11/24/16 [Last Taken 17:00] Cyclobenzaprine [Flexeril 10 MG (*)] 10 mg PO BID PRN 11/24/16 [Last Taken 01/20] Gabapentin [Neurontin 300 MG (*)] 300 mg PO BID@11/24/16 [Last Taken 01/20 19:00] Gabapentin [Neurontin 300 MG (*)] 600 mg PO HS 11/24/16 [Last Taken 01/20/17 20: 00] Lisinopril [Zestril 5 mg (*)] 5 mg PO DAILY 11/24/16 [Last Taken 01/20/17] oxyCODONE CR [Oxycontin] 40 mg PO BID@,11/24/16 [Last Taken 01/21/17 05:00] oxyCODONE HCL [Oxycontin] 60 mg PO HS 11/24/16 [Last Taken 01/20/17 20:00] oxyCODONE HCL [Roxicodone] 15 mg PO Q8 PRN 11/24/16 [Last Taken 01/20/17 08:00] - NPO status NPO Since - Liquids (Date): 04/28/17 NPO Since - Liquids (Time): 23:30 NPO Since - Solids (Date): 04/28/17 NPO Since - Solids (Time): 08:00 - Smoking Hx Smoking Status: Heavy smoker - Family Anes Hx Family Hx Anesthesia Complications: NONE ANE Labs/Vital Signs - Vital Signs Blood Pressure: 146/88 Heart Rate: 73 Respiratory Rate: 16 O2 Sat (%): 94 Height: 182.88 cm Weight: 68.039 kg ANE Physical Exam - Airway Neck exam: decreased ROM (decreased lateral ROM) Mallampati Score: Class 1 Mouth exam: normal dental/mouth exam - Pulmonary Pulmonary: clear to auscultation - Cardiovascular Cardiovascular: regular rate and rhythym - ASA Status ASA Status: II ANE Anesthesia Plan Anesthesia Plan: GA with mask
[2017-04-29] MEDS ORDERED: MIDAZOLAM 2 MG/2 ML VIAL IVP ONE (09:45)
[2017-04-29] MEDS ORDERED: MIDAZOLAM 2 MG/2 ML VIAL ONE (09:46)
[2017-04-29] MEDS ORDERED: PROPOFOL 200 MG/20 ML VIAL ONE ×2 (09:47→10:08)
[2017-04-29] MEDS ORDERED: fentaNYL 100 MCG/2 ML INJ ONE (09:47)
[2017-04-29] MEDS ORDERED: NALOXONE HCL 0.4 MG/ML INJ IVP PRN (09:55)
--- NOTE | 2017-04-29 10:12 | POSTOPPROG ---
Post Op Note Date of Operation: 04/29/17 Surgeon: Bishop Terrell Pre-op Diagnosis: screening Post-op Diagnosis: polyps s/p removal Indication: screening Procedure: Colonoscopy w/ biopsy Findings: Sigmoid colon polyps x 3, rectal polyp x 1, internal hemorrhoids Inf/Abcess present in the surg proc area at time of surgery?: No
--- NOTE | 2017-04-29 10:39 | POSTANESTH ---
Post Anesthetic Evaluation Cardiovascular Status: Normal, Stable Respiratory Status: Normal, Stable Level of Consciousness/Mental Status: Can Participate in Eval Pain Control: Adequate, Prn Tx Ordered Nausea/Vomiting Control: Adequate, Prn Tx Ordered Complications Possibly Related to Anesthesia: None Noted
[2017-04-29 11:15] VITALS: RESP 14
[2017-04-29 12:00] VITALS: BP 124/72; O2SAT 95
[2017-04-29 12:10] VITALS: TEMP 96.8
--- NOTE | 2017-04-29 16:17 | GPN ---
[f rep st] PROCEDURE NOTE PREPROCEDURE DIAGNOSIS: Need for screening colonoscopy. Prior poor colonoscopy prep. POSTPROCEDURE DIAGNOSIS: Small colon polyps, status post removal. PROCEDURE: Colonoscopy with biopsies. MEDICATIONS: Monitored anesthesia care. INDICATIONS: The patient is a 61-year-old gentleman with a history of recent screening colonoscopy with poor colon preparation. He is here for repeat colonoscopy. The risks and benefits of the proc edure discussed with the patient and consent obtained. The risks include, but not limited to, bleed ing, perforation, sedation. The patient is ASA class 3. DESCRIPTION OF PROCEDURE: The adult colonoscope was advanced into the terminal ileum, which appeare d normal. The ileocecal valve, appendiceal orifice, cecum, ascending colon, hepatic flexure, transv erse colon, splenic flexure, descending colon appeared normal. There were 3 small polyps measuring 1-2 mm, removed from the sigmoid colon using cold biopsy forceps. The rectum showed 1 small polyp m easuring 1 mm and removed using cold biopsy forceps. Retroflexed views in the rectum showed grade 1 internal hemorrhoids. IMPRESSION: 1. Small colon polyps, status post removal. 2. Grade 1 internal hemorrhoids. RECOMMENDATION: 1. Discharged home with escort. 2. Advance diet as tolerated. 3. Follow up the final pathology results. Results within 10 days. 4. Repeat colonoscopy in 3 years if 3 or more polyps are found to be adenomatous polyps. Repeat co lonoscopy in 5 years if 1-2 polyps are found to be adenomatous polyps. Thank you for allowing me to participate in the care of your patient. Please do not hesitate to bela harris with questions. /[id number]/MODL
== END 2017-04-29 11:55 | disposition home or self-care (01) ==
LOC: FSGY 08:22
PROVIDERS: ATTEND Internal Medicine Gastroenterology
PROC: 0DBN8ZX Excision of Sigmoid Colon, Via Natural or Artificial Opening Endoscopic, Diagnostic (ICD-10-PCS; principal; 2017-04-29 09:30)
PROC: 0DBP8ZX Excision of Rectum, Via Natural or Artificial Opening Endoscopic, Diagnostic (ICD-10-PCS; principal; 2017-04-29 09:30)
DX: Z12.11 Encounter for screening for malignant neoplasm of colon (principal); K63.5 Polyp of colon; K62.1 Rectal polyp; K64.0 First degree hemorrhoids; F17.200 Nicotine dependence, unspecified, uncomplicated
CPT/HCPCS: J2250; J2704; J3010

== ENCOUNTER → 2017-06-25 | Outpatient (CLI) | payer OTHER, MEDICAID | LOC: FIMAGING 15:44 | PROVIDERS: ATTEND Pain Medicine Interventional Pain Medicine | DX: M50.31 Other cervical disc degeneration, high cervical region (principal); M46.92 Unspecified inflammatory spondylopathy, cervical region; M48.02 Spinal stenosis, cervical region ==

== ENCOUNTER → 2018-08-28 | Outpatient (CLI) | payer OTHER, MEDICAID ==
[~2018-08-28] MED LIST: GADOBUTROL 10 ML VIAL IVP ONE
== END ==
LOC: FIMAGING 08:20
PROVIDERS: ATTEND Internal Medicine
DX: J32.0 Chronic maxillary sinusitis (principal); G31.9 Degenerative disease of nervous system, unspecified; R90.82 White matter disease, unspecified
CPT/HCPCS: 70553; A9585